=== PATIENT | male | born 1980 | race Two or more races ===

== ENCOUNTER 2017-10-08 10:00 | Emergency (ER) | payer MEDICAID ==
[~2017-10-08] VITALS: Ht 165.1 cm; Wt 83.9 kg
--- NOTE | 2017-10-08 11:11 | NUR ---
pt ambulatory to er bed 11. c/o sob, hx of asthma. also c/o flu like symptoms, lower back pain from a fall off a stairs on the . gowned and placed on monitor. 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 afebrile. awaiting md sanderson.
--- NOTE | 2017-10-08 11:28 | NUR ---
dr martínez at bedside for eval.
[2017-10-08] MEDS ORDERED: IPRATROPIUM NEB FS 0.5 MG/2.5 ML AMPUL.NEB NEB ONE (11:30)
[2017-10-08] MEDS ORDERED: HYDROCODONE/APAP 5/325MG 1 EACH TABLET PO ONE (11:30)
[2017-10-08] MEDS ORDERED: ALBUTEROL FS 2.5 MG/0.5 ML VIAL.NEB NEB ONE ×2 (11:30→13:00)
[2017-10-08] MEDS ORDERED: DEXAMETHASONE 1 MG TABLET PO ONE (11:30)
[2017-10-08] MEDS ORDERED: HYDROCODONE/APAP 5/325MG 1 EACH TABLET ONE (11:36)
[2017-10-08] MEDS ORDERED: DEXAMETHASONE 1 MG TABLET ONE (11:36)
[2017-10-08] MEDS ORDERED: ALBUTEROL FS 2.5 MG/3 ML VIAL.NEB ONE ×2 (11:38→13:23)
[2017-10-08] MEDS ORDERED: IPRATROPIUM NEB FS 0.5 MG/2.5 ML AMPUL.NEB ONE (11:38)
--- NOTE | 2017-10-08 11:43 | NUR ---
rt at bedside for breathing treatment.
[2017-10-08] MEDS ORDERED: MORPHINE SULFATE INJ 10 MG/ML DISP.SYRIN IV ONE (13:30)
[2017-10-08] MEDS ORDERED: ONDANSETRON 4 MG TAB.RAPDIS SL ONE (13:30)
[2017-10-08] MEDS ORDERED: MORPHINE SULFATE INJ 4 MG/ML DISP.SYRIN ONE (13:40)
[2017-10-08] MEDS ORDERED: ONDANSETRON 4 MG TAB.RAPDIS ONE (13:40)
--- NOTE | 2017-10-08 14:39 | NUR ---
Note mt in ED - 10/08/17 at 1440 by SHAHZAD Patient discharged to home in stable condition. Written and verbal after care instructions given. Patient verbalizes understanding of instruction.IV removed. Catheter intact and site benign. Pressure and 4x4 applied to site. No bleeding noted.
--- NOTE | 2017-10-08 14:40 | NUR ---
Patient discharged to home in stable condition. Written and verbal after care instructions given. Patient verbalizes understanding of instruction.
[2017-10-08 14:44] VITALS: BP 128/80
== END 2017-10-08 14:45 | disposition home or self-care (01) ==
LOC: ER 10:11
DX: S39.012A Strain of muscle, fascia and tendon of lower back, initial encounter (principal); J45.901 Unspecified asthma with (acute) exacerbation; J06.9 Acute upper respiratory infection, unspecified; F17.200 Nicotine dependence, unspecified, uncomplicated; Z88.6 Allergy status to analgesic agent; X58.XXXA Exposure to other specified factors, initial encounter; Y93.89 Activity, other specified; Y92.89 Other specified places as the place of occurrence of the external cause; Y99.8 Other external cause status
CPT/HCPCS: 71045; 94640 ×2; 96372; 99284; A4606; J2270; J8540; Q0162; Z7610

== ENCOUNTER 2018-12-01 11:49 | Emergency (ER) | payer OTHER ==
[~2018-12-01] VITALS: Ht 162.6 cm; Wt 74.8 kg
[2018-12-01 12:25] VITALS: BP 145/74
--- NOTE | 2018-12-01 13:34 | NUR ---
Patient discharged to home in stable condition. Written and verbal after care instructions given. Patient verbalizes understanding of instruction.
== END 2018-12-01 13:33 | disposition home or self-care (01) ==
LOC: ER 11:49
DX: M65.331 Trigger finger, right middle finger (principal); F17.200 Nicotine dependence, unspecified, uncomplicated; Z88.6 Allergy status to analgesic agent; Z60.2 Problems related to living alone
CPT/HCPCS: 99282; A4606